=== PATIENT | female | born 1950 | race Hispanic/Latino ===

== ENCOUNTER 2020-02-22 11:20 | Inpatient (IN) | payer OTHER ==
[~2020-02-22] VITALS: Ht 157.5 cm; Wt 77.5 kg
[2020-02-22] MEDS ORDERED: ZOSYN 3.375GM+NS 50ML 50 ML IV ONE (11:47)
[2020-02-22] MEDS ORDERED: SODIUM CHLORIDE 0.9% 1000ML 2,000 ML IV ONE (11:48)
[2020-02-22] MEDS ORDERED: DOXYCYCLINE HYCLATE 100 MG TABLET PO ONE ×2 (13:17→16:18)
[2020-02-22] MEDS ORDERED: IOHEXOL-350 75 ML VIAL IV ONE (13:53)
[2020-02-22] MEDS ORDERED: CEFTRIAXONE SODIUM 1 GM IVP SCH (15:45)
[2020-02-22] MEDS ORDERED: CEFTRIAXONE SODIUM 1 GM ONE (16:18)
[2020-02-22] MEDS ORDERED: SODIUM CHLORIDE 0.9% 500ML 500 ML IV ONE (16:18)
[2020-02-22] MEDS ORDERED: ENOXAPARIN SODIUM 40 MG/0.4 ML SYRINGE SQ ONE (16:18)
[2020-02-22] MEDS ORDERED: ACETAMINOPHEN 325 MG TAB ONE (16:51)
[2020-02-22] MEDS ORDERED: ACETAMINOPHEN EXTRA STRENGTH 500 MG TABLET ONE (20:47)
[2020-02-23] MEDS ORDERED: SODIUM CHLORIDE 0.9% 500ML 500 ML IV ONE (04:56)
[2020-02-23] MEDS ORDERED: ACETAMINOPHEN EXTRA STRENGTH 500 MG TABLET ONE (05:42)
[2020-02-23] MEDS ORDERED: MAGNESIUM 2GM PREMIX 50ML 50 ML IV SCH (08:15)
[2020-02-23] MEDS ORDERED: POTASSIUM CHLORIDE 20 MEQ ERTAB PO SCH (08:15)
[2020-02-23] MEDS: ENOXAPARIN SODIUM 40 MG/0.4 ML SYRINGE SQ SCH (08:35)
--- NOTE | 2020-02-23 09:41 | NUR ---
Sw unable to meet with pt who is in ER covid unit. Pt did not answer cell [phone], message was left. SW attempted to reach daughter, # on face sheet is wrong.
[2020-02-23] MEDS ORDERED: POTASSIUM CHLORIDE 20 MEQ ERTAB PO ONE (09:50)
[2020-02-23] MEDS ORDERED: CEFTRIAXONE SODIUM 1 GM ONE (09:50)
[2020-02-23] MEDS ORDERED: DOXYCYCLINE HYCLATE 100 MG TABLET PO ONE (09:50)
[2020-02-23] MEDS ORDERED: ENOXAPARIN SODIUM 60 MG/0.6 ML SQ ONE (09:50)
[2020-02-23] MEDS ORDERED: 1/2 NORMAL SALINE 1,000 ML IV ONE (09:51)
[2020-02-23] MEDS: DOXYCYCLINE HYCLATE 100 MG TABLET PO SCH ×3 (10:00→20:21)
[2020-02-23] MEDS ORDERED: MAGNESIUM 2GM PREMIX 50ML 50 ML IV ONE (10:08)
[2020-02-23] MEDS: CEFTRIAXONE SODIUM 1 GM IVP SCH ×2 (10:13→20:21)
[2020-02-23] MEDS ORDERED: SODIUM CHLORIDE 0.9% 500ML 500 ML IV SCH (13:30)
[2020-02-23] MEDS: SODIUM CHLORIDE 0.9% 1000ML 1,000 ML IV SCH ×2 (13:34→16:07)
[2020-02-23] MEDS ORDERED: ACETAMINOPHEN 325 MG TAB ONE (17:16)
[2020-02-23] MEDS: ACETAMINOPHEN 325 MG TAB PO PRN ×2 (17:17→23:31)
[2020-02-23] MEDS ORDERED: DEXTROSE 50%-WATER 50 ML DISP.SYRIN IV PRN (18:45)
[2020-02-23] MEDS ORDERED: GLUCAGON 1MG KIT 1 MG ML IM PRN (18:45)
[2020-02-23 19:00] VITALS: BP 119/51; PULSE 70; RESP 19; TEMP 99.1
[2020-02-24] VITALS (8 sets, daily range): BP systolic 94–162; BP diastolic 42–65; PULSE 69–104; RESP 18–20; TEMP 97.4–103
[2020-02-24] MEDS ORDERED: IBUPROFEN 800 MG TAB ONE (01:10)
[2020-02-24] MEDS ORDERED: IBUPROFEN 800 MG TAB PO SCH (01:15)
--- NOTE | 2020-02-24 08:00 | NUR ---
AM ASSESSMENT PT LAYING IN BED, RESTING. GBW. A/O X 3. NO SOB. NO DISTRESS NOTED. DENIES CHEST PAIN OR DISCOMFORT. TELE: SR. DENIES N/V AND/OR DIARRHEA. BR W/BRP. 0.9% NCL INFUSING @ 75 ML/HR. INSTRUCTED TO CALL FOR ASSISTANCE. CALL LEE ANN W/IN REACH.
[2020-02-24] MEDS: ENOXAPARIN SODIUM 40 MG/0.4 ML SYRINGE SQ SCH (08:16)
[2020-02-24] MEDS: CEFTRIAXONE SODIUM 1 GM IVP SCH ×2 (08:16→21:13)
[2020-02-24] MEDS: DOXYCYCLINE HYCLATE 100 MG TABLET PO SCH ×2 (08:16→21:13)
[2020-02-24] MEDS ORDERED: LIDOCAINE HCL-MPF 1% 2ML VIAL IJ PRN (08:45)
[2020-02-24] MEDS ORDERED: POTASSIUM CHLORIDE 20MEQ/100ML 100 ML IV PRN (08:45)
[2020-02-24] MEDS ORDERED: POTASSIUM CHLORIDE 20 MEQ ERTAB PO SCH (08:45)
[2020-02-24] MEDS ORDERED: POTASSIUM CHLORIDE 20 MEQ ERTAB PO PRN (08:45)
[2020-02-24] MEDS: POTASSIUM CHLORIDE 10% ELIXIR 20 MEQ/15 ML UDCUP PO PRN ×2 (09:42→11:37)
[2020-02-24] MEDS ORDERED: VANCOMYCIN PROTOCOL PER PHARMACY IV SCH (11:00)
[2020-02-24] MEDS: SODIUM CHLORIDE 0.9% 1000ML 1,000 ML IV SCH ×2 (11:37→21:13)
[2020-02-24] MEDS: ACETAMINOPHEN 325 MG TAB PO PRN ×2 (13:42→23:47)
[2020-02-24] MEDS ORDERED: COMPOUND IV REFRIGERATED 1 EACH IVSOLN MISC PRN (14:45)
[2020-02-24] MEDS ORDERED: VANCOMYCIN 1.5 GM in SODIUM CHLORIDE 0.9% 250 ML IV ONE (15:00)
[2020-02-24] MEDS ORDERED: DEXTROSE 50%-WATER 50 ML DISP.SYRIN IV PRN (16:45)
[2020-02-24] MEDS ORDERED: GLUCAGON 1MG KIT 1 MG ML IM PRN (16:45)
[2020-02-24] MEDS: INSULIN HUMULIN R 100 UNIT/ML 3ML SQ SCH (20:58)
[2020-02-25] MEDS ORDERED: VANCOMYCIN 500MG+NS 100ML 100 ML IV SCH (03:00)
[2020-02-25 03:02] VITALS: BP 126/55; PULSE 85; RESP 18; TEMP 98.1
[2020-02-25] MEDS: VANCOMYCIN 500MG+NS 100ML 100 ML IV SCH ×2 (06:23→18:13)
[2020-02-25] MEDS: INSULIN HUMULIN R 100 UNIT/ML 3ML SQ SCH ×4 (06:23→20:57)
[2020-02-25] MEDS: DOXYCYCLINE HYCLATE 100 MG TABLET PO SCH ×2 (08:11→20:57)
[2020-02-25 08:27] VITALS: BP 138/45; PULSE 107; RESP 18; TEMP 99.9
[2020-02-25] MEDS ORDERED: ONDANSETRON HCL 4 MG/2 ML VIAL IVP SCH (08:45)
[2020-02-25] MEDS ORDERED: ONDANSETRON HCL 4 MG/2 ML VIAL ONE (09:02)
[2020-02-25] MEDS: CEFTRIAXONE SODIUM 1 GM IVP SCH ×2 (09:36→20:57)
[2020-02-25] MEDS: SODIUM CHLORIDE 0.9% 1000ML 1,000 ML IV SCH (09:39)
[2020-02-25] MEDS: METOCLOPRAMIDE 5 MG TABLET PO SCH ×3 (11:23→20:56)
[2020-02-25 11:44] VITALS: BP 129/53; PULSE 100; RESP 18; TEMP 100.4
--- NOTE | 2020-02-25 12:03 | NUR ---
DR. DINERO IN ROOM SPEAKING WITH PT. RE:PLAN OF CARE; QUESTIONS ANSWERED BY DR. DINERO.
[2020-02-25] MEDS ORDERED: PHARMACY COMMUNICATION MISC SCH (12:30)
--- NOTE | 2020-02-25 13:01 | NUR ---
CM NOTE TIARA WHITTINGTON, APPROACHED ME FOR MIRIAM VELA. PATIENT BEING DISCHARGED TODAY WITH 30 DAY ELIQUIS RX. ELIQUIS COUPON GIVEN TO TIARA WHITTINGTON. Addendum: 02/26/20 at 0943 by DIXIE DAVENPORT RN CM ENTERED IN ERROR.
--- NOTE | 2020-02-25 13:50 | NUR ---
DR. TAPIA AT NURSE'S STATION. UPDATED ON PT. STATUS AND QUESTIONS ANSWERED.
--- NOTE | 2020-02-25 16:47 | NUR ---
SITTING UP IN CHAIR EATING DINNER. DENIES ANY C/O AT THIS TIME. CALL LIGHT WITHIN REACH. ROOM DOOR OPEN, VISIBLE FROM NURSE'S STATION.
[2020-02-25 16:54] VITALS: BP 109/41; PULSE 104; RESP 18; TEMP 100.6
[2020-02-25 19:00] VITALS: BP 118/44; PULSE 92; RESP 22; TEMP 98.6
[2020-02-25 23:00] VITALS: BP 127/53; PULSE 95; RESP 22; TEMP 99.6
[2020-02-26 03:00] VITALS: BP 135/65; PULSE 92; RESP 18; TEMP 99
[2020-02-26] MEDS: SODIUM CHLORIDE 0.9% 1000ML 1,000 ML IV SCH (03:54)
[2020-02-26] MEDS: INSULIN HUMULIN R 100 UNIT/ML 3ML SQ SCH ×2 (05:35→11:30)
[2020-02-26] MEDS: METOCLOPRAMIDE 5 MG TABLET PO SCH ×2 (05:52→11:30)
[2020-02-26] MEDS: VANCOMYCIN 500MG+NS 100ML 100 ML IV SCH (05:53)
[2020-02-26 07:50] VITALS: BP 135/65; PULSE 89; RESP 21; TEMP 99
[2020-02-26] MEDS: CEFTRIAXONE SODIUM 1 GM IVP SCH (09:41)
[2020-02-26] MEDS: DOXYCYCLINE HYCLATE 100 MG TABLET PO SCH (09:41)
--- NOTE | 2020-02-26 11:21 | NUR ---
SPOKE TO PATIENT ON PHONE FOR IA CALL TO RN TO ADVISED PATIENT TO ANSWER HER PHONE. PATIENT STATES SHE LIVES ALONE, IS ACTIVE AND INDEPENDENT, SEES HER DAUGHTER ROBERTO EVERY DAY AND DOES ALL THE BABY SITTING FOR HER GRANDCHILDREN, WHO HAVE CATS. PATIENT DRIVES, HAS NOT DME, HOME SAFE AND ACCESSIBLE, SEES CRISTINA [facility], [facility] WHEN FEVER CONTROLLED. CM TO FOLLOW FOR FURTHER RECOMMENDATIONS Addendum: 02/26/20 at 1125 by QUOC CARDOZO RN CM Amended: Links added.
--- NOTE | 2020-02-26 11:25 | NUR ---
DISPO TO HOME , NO SERVICES EXPECTED, Addendum: 02/26/20 at 1125 by QUOC CARDOZO RN CM Amended: Links added.
[2020-02-26 11:56] VITALS: BP 136/61; PULSE 95; RESP 20; TEMP 98.2
--- NOTE | 2020-02-26 12:12 | NUR ---
DAUGHTERS CONTACT INFO UPDATED [phone]
--- NOTE | 2020-02-26 12:25 | NUR ---
DR. EVANS IN TO SEE PT. PLAN TO DISCHARGE WITH RX.
--- NOTE | 2020-02-26 15:20 | NUR ---
DISCHARGED USING TEACH BACK, RX GIVEN WITH INST AND WILL FOLLOW UP WITH DR. EVANS EARLY NEXT WEEK. VERBALIZED UNDERSTANDING OF ALL INST. GIVEN. SALINE LOCK REMOVED AND HEART MONITOR DCD
== END 2020-02-26 16:46 | disposition home or self-care (01) | DRG 872 ==
LOC: EDH 11:20 → EDHIP 11:21 → 4CH 02-23 20:52 → DAHIP 02-25 18:20
PROVIDERS: ADMIT Internal Medicine; ATTEND Internal Medicine
DX: A41.9 Sepsis, unspecified organism (principal); E87.1 Hypo-osmolality and hyponatremia; A79.9 Rickettsiosis, unspecified; E86.0 Dehydration; I95.9 Hypotension, unspecified; K75.9 Inflammatory liver disease, unspecified; D69.6 Thrombocytopenia, unspecified; D64.9 Anemia, unspecified; D69.59 Other secondary thrombocytopenia; E11.9 Type 2 diabetes mellitus without complications; E66.9 Obesity, unspecified; E78.2 Mixed hyperlipidemia; E86.1 Hypovolemia; E87.6 Hypokalemia; G47.33 Obstructive sleep apnea (adult) (pediatric); I11.9 Hypertensive heart disease without heart failure; I25.10 Atherosclerotic heart disease of native coronary artery without angina pectoris; I25.2 Old myocardial infarction; I27.20 Pulmonary hypertension, unspecified; Z74.01 Bed confinement status; Z20.828 Contact with and (suspected) exposure to other viral communicable diseases

== ENCOUNTER → 2023-04-03 | Outpatient (CLI) | payer MEDICARE ==
[~2023-04-03] MED LIST: ATEN50TA PO; CYAN250014 PO; DOXY100T21 PO; FOLI0.8C PO; GLIM4TAB36 PO; LOSA100T59 PO; PRAV10TA39 PO
== END | disposition home or self-care (01) ==
LOC: OIH 14:06
PROVIDERS: ATTEND Internal Medicine
DX: M47.815 Spondylosis without myelopathy or radiculopathy, thoracolumbar region (principal); J84.89 Other specified interstitial pulmonary diseases; R63.4 Abnormal weight loss
CPT/HCPCS: 71046

== ENCOUNTER → 2023-05-09 | Outpatient (CLI) | payer MEDICARE | END | disposition home or self-care (01) | LOC: RAH 09:26 | PROVIDERS: ATTEND Internal Medicine | DX: R63.4 Abnormal weight loss (principal) | CPT/HCPCS: 76700 ==

== ENCOUNTER → 2023-10-07 | Outpatient (CLI) | payer MEDICARE ==
[~2023-10-07] MED LIST changes: +IOHEXOL 350 MG/ML 100ML INFUS..BTL IV ONE
== END | disposition home or self-care (01) ==
LOC: RAH 09:30
PROVIDERS: ATTEND Internal Medicine Gastroenterology
DX: K57.90 Diverticulosis of intestine, part unspecified, without perforation or abscess without bleeding (principal); I70.0 Atherosclerosis of aorta; R63.4 Abnormal weight loss; M47.815 Spondylosis without myelopathy or radiculopathy, thoracolumbar region
CPT/HCPCS: 74178; Q9967